=== PATIENT | female | born 1975 | race Caucasian/White ===

== ENCOUNTER 2019-05-26 20:32 | Inpatient (IN) | payer MEDICARE, MEDICAID ==
[~2019-05-26] VITALS: Ht 167.6 cm; Wt 84.5 kg
[~2019-05-26 20:32] MED LIST: ARIP400S IM; DIPH25 PO; ESCI10TA PO; LORA-1000 PO; LORA-999 PO; PALI156D IM; QUET100T PO; QUET25TA PO; TOPI100T37 PO
[2019-05-26] MEDS ORDERED: OLAN5TAB2 PO (21:16)
[2019-05-26] MEDS ORDERED: CLON2 PO (21:16)
[2019-05-26] MEDS ORDERED: ILOP4TAB2 PO (21:16)
[2019-05-26] MEDS ORDERED: DIVA125SP PO (21:16)
[2019-05-26] MEDS ORDERED: DEPOP150I IM (21:16)
[2019-05-26] MEDS ORDERED: PROZ10 PO (21:16)
[2019-05-26 22:06] LABS: BASOPHILS % (AUTO) 0.4 % (0.0-2.0); HEMATOCRIT 35.7 % (36-46); HEMOGLOBIN 12.2 g/dL (12.0-16.0); LYMPHOCYTES # (AUTO) 3.8 K/uL (1.0-4.8); LYMPHOCYTES % (AUTO) 41.2 % (22.0-44.0); MEAN CORPUSCULAR HEMOGLOBIN 31.2 pg (26.0-34.0); MEAN CORPUSCULAR HGB CONC 34.1 G/dL (31.0-37.0); MEAN CORPUSCULAR VOLUME 91 fL (80-100); MONOCYTES # (AUTO) 0.6 K/uL (0.1-1.0); NEUTROPHILS # (AUTO) 4.6 K/uL (1.8-7.7); NEUTROPHILS % (AUTO) 50.4 % (40.0-70.0); PLATELET COUNT (AUTO) 203 K/uL (150-450); RED BLOOD CELL COUNT(AUTO) 3.91 MIL/uL (4.00-5.20); RED CELL DISTRIBUTION WIDTH 13.4 % (11.5-14.5)
[2019-05-26 22:12] LABS: APPEARANCE,URINE CLEAR (CLEAR); BILIRUBIN,URINE NEGATIVE (NEGATIVE); GLUCOSE, URINE (UA) NEGATIVE (NEGATIVE); KETONES,URINE NEGATIVE (NEGATIVE); LEUKOCYTE ESTERASE ,URINE SMALL (NEGATIVE); NITRATE,URINE NEGATIVE (NEGATIVE); OCCULT BLOOD,URINE TRACE (NEGATIVE); PROTEIN,URINE NEGATIVE (NEGATIVE); UROBILINOGEN,URINE 0.2 mg/dL (<=1.0)
[2019-05-26 22:17] LABS: AMPHET/METH SCREEN,URINE NEGATIVE (NEGATIVE); BARBITURATE SCREEN, URINE NEGATIVE (NEGATIVE); BENZODIAZEPINES SCREEN,URINE NEGATIVE (NEGATIVE); CANNABINOID SCREEN,URINE NEGATIVE (NEGATIVE); COCAINE SCREEN,URINE NEGATIVE (NEGATIVE); METHADONE SCREEN, URINE NEGATIVE (NEGATIVE); OPIATE SCREEN,URINE NEGATIVE (NEGATIVE); PHENCYCLIDINE SCREEN,URINE NEGATIVE (NEGATIVE)
[2019-05-26 22:19] LABS: ANION GAP 10 mmol/L (8-16); CALCIUM, TOTAL 8.8 mg/dL (8.8-10.5); CARBON DIOXIDE 22 mmol/L (22-29); CHLORIDE 103 mmol/L (98-107); CREATININE 0.81 mg/dL (0.60-1.30); GLOMERULAR FILTR. RATE CALC > 60 mL/min (>60); GLUCOSE,RANDOM 103 mg/dL (70-110); POTASSIUM 3.4 mmol/L (3.5-5.1); SODIUM SERUM 135 mmol/L (136-145); UREA NITROGEN, BLOOD 14 mg/dL (7-18)
[2019-05-26 22:32] LABS: ALANINE AMINOTRANSFERASE 22 U/L (12-78); ALBUMIN 3.2 g/dL (3.4-5.0); ALKALINE PHOSPHATASE 61 U/L (46-116); ASPARTATE AMINOTRANSFERASE 12 U/L (15-37); BILIRUBIN,TOTAL 0.2 mg/dL (0.1-1.0); HCG,QUANTITATIVE < 1 mIU/mL (0-6); TOTAL PROTEIN, SERUM 6.8 g/dL (6.4-8.2)
[2019-05-26 22:54] LABS: BACTERIA,URINE None Seen /HPF (None Seen); RBC,URINE 0-2 /HPF (0-2); SQUAMOUS EPITHELIAL CELL,UR Few /LPF (None Seen)
[2019-05-27] MEDS ORDERED: LORazepam 2 MG TABLET PO PRN (00:15)
[2019-05-27] MEDS ORDERED: HALOPERIDOL 5 MG TABLET PO PRN (00:15)
[2019-05-27] MEDS ORDERED: ZOLPIDEM TARTRATE 10 MG TABLET PO PRN (00:15)
[2019-05-27 01:02] LABS: LIPASE 228 U/L (73-393)
[2019-05-27 04:31] VITALS: BP 123/83
[2019-05-27 05:05] VITALS: BP 123/83
[2019-05-27] MEDS ORDERED: POTASSIUM CHLORIDE 20 MEQ ER TABLET PO ONE (09:00)
[2019-05-27] MEDS: CEPHALEXIN MONOHYDRATE 500 MG CAPSULE PO SCH ×3 (09:10→16:29)
[2019-05-27 09:56] VITALS: BP 106/60
[2019-05-27 09:59] VITALS: BP 106/60
[2019-05-27] MEDS ORDERED: ClonazePAM 1 MG TABLET PO SCH (13:00)
[2019-05-27] MEDS ORDERED: ONDANSETRON HCL 4 MG TABLET PO PRN (15:45)
[2019-05-27] MEDS ORDERED: LOPERAMIDE HCL 2 MG CAPSULE PO PRN (15:45)
[2019-05-27] MEDS ORDERED: ALBUTEROL SULFATE HFA 90 MCG/PUFF 8 GM INHALER IH PRN (15:45)
[2019-05-27] MEDS ORDERED: MAG HYDROX/AL HYDROX/SIMETH ES 30 ML SUSPENSION UDCUP PO PRN (15:45)
[2019-05-27] MEDS ORDERED: DOCUSATE SODIUM 100 MG CAPSULE PO PRN (15:45)
[2019-05-27] MEDS ORDERED: NICOTINE 14 MG/24 HOUR PATCH TD PRN (15:45)
[2019-05-27] MEDS ORDERED: CloNIDine HCL 0.1 MG TABLET PO PRN (15:45)
[2019-05-27] MEDS ORDERED: IBUPROFEN 400 MG TABLET PO PRN (15:45)
[2019-05-27] MEDS ORDERED: MAGNESIUM HYDROXIDE SUSPENSION 30 ML UDCUP PO PRN (15:45)
[2019-05-27] MEDS ORDERED: GuaiFENesin/D-METHORPHAN [SUGAR-FREE] 200-20MG/10 ML SYRUP UDCUP PO PRN (15:45)
[2019-05-27] MEDS ORDERED: ACETAMINOPHEN 325 MG TABLET PO PRN (15:45)
[2019-05-27] MEDS ORDERED: PETROLATUM,WHITE 28 GM JELLY TP PRN (15:45)
[2019-05-27 16:19] VITALS: BP 109/68
[2019-05-27] MEDS: ClonazePAM 1 MG TABLET PO SCH (16:27)
[2019-05-27] MEDS: DIVALPROEX SODIUM 500 MG ER TABLET PO SCH (16:28)
[2019-05-27] MEDS: FLUoxetine HCL 10 MG CAPSULE PO SCH (16:28)
[2019-05-27] MEDS: OLANZapine 7.5 MG TABLET PO SCH (20:39)
[2019-05-28 01:11] VITALS: BP 117/73
[2019-05-28] MEDS ORDERED: INFLUENZA VIRUS VACCINE QVS 2019-20 (3YR+)/PF 60 MCG/0.5 ML SYRINGE IM ONE (01:15)
[2019-05-28] MEDS ORDERED: PNEUMOCOCCAL VACCINE POLYVALENT 0.5 ML VIAL [PPSV23] IM ONE (01:15)
[2019-05-28 08:11] VITALS: BP 132/77
[2019-05-28] MEDS: FLUoxetine HCL 10 MG CAPSULE PO SCH (08:14)
[2019-05-28] MEDS: TOPIRAMATE 100 MG TABLET PO SCH (08:14)
[2019-05-28] MEDS: DIVALPROEX SODIUM 500 MG ER TABLET PO SCH ×2 (08:14→16:16)
[2019-05-28] MEDS: ClonazePAM 1 MG TABLET PO SCH ×2 (08:14→16:17)
[2019-05-28] MEDS: CEPHALEXIN MONOHYDRATE 500 MG CAPSULE PO SCH ×3 (08:14→16:17)
[2019-05-28 16:12] VITALS: BP 109/80
[2019-05-28] MEDS: OLANZapine 7.5 MG TABLET PO SCH (21:00)
[2019-05-29 08:26] VITALS: BP 119/95
[2019-05-29] MEDS: CEPHALEXIN MONOHYDRATE 500 MG CAPSULE PO SCH ×3 (08:58→18:07)
[2019-05-29] MEDS: DIVALPROEX SODIUM 500 MG ER TABLET PO SCH ×2 (08:58→17:17)
[2019-05-29] MEDS: FLUoxetine HCL 10 MG CAPSULE PO SCH (08:58)
[2019-05-29] MEDS: TOPIRAMATE 100 MG TABLET PO SCH (08:59)
[2019-05-29] MEDS: ClonazePAM 1 MG TABLET PO SCH ×2 (08:59→17:17)
[2019-05-29 16:07] VITALS: BP 110/73
[2019-05-29] MEDS: OLANZapine 7.5 MG TABLET PO SCH (21:13)
[2019-05-30 02:12] VITALS: BP 115/81
[2019-05-30 08:25] VITALS: BP 107/71
[2019-05-30] MEDS: DIVALPROEX SODIUM 500 MG ER TABLET PO SCH ×2 (08:27→16:53)
[2019-05-30] MEDS: ClonazePAM 1 MG TABLET PO SCH ×2 (08:27→16:53)
[2019-05-30] MEDS: FLUoxetine HCL 10 MG CAPSULE PO SCH (08:28)
[2019-05-30] MEDS: TOPIRAMATE 100 MG TABLET PO SCH (08:28)
[2019-05-30] MEDS: CEPHALEXIN MONOHYDRATE 500 MG CAPSULE PO SCH ×3 (08:28→16:53)
[2019-05-30 17:33] VITALS: BP 108/61
[2019-05-30] MEDS: OLANZapine 7.5 MG TABLET PO SCH (20:34)
[2019-05-31 05:02] VITALS: BP 105/72
[2019-05-31 08:14] LABS: CHOL/HDL RATIO 5.8 (3.9-5.7); POTASSIUM 3.4 mmol/L (3.5-5.1)
[2019-05-31 08:22] VITALS: BP 120/96
[2019-05-31] MEDS: TOPIRAMATE 100 MG TABLET PO SCH (08:28)
[2019-05-31] MEDS: ClonazePAM 1 MG TABLET PO SCH ×2 (08:28→16:20)
[2019-05-31] MEDS: CEPHALEXIN MONOHYDRATE 500 MG CAPSULE PO SCH ×3 (08:28→16:20)
[2019-05-31] MEDS: FLUoxetine HCL 10 MG CAPSULE PO SCH (08:28)
[2019-05-31] MEDS: DIVALPROEX SODIUM 500 MG ER TABLET PO SCH ×2 (08:28→16:20)
[2019-05-31 13:09] VITALS: BP 119/78
[2019-05-31] MEDS ORDERED: DIVA-78 PO (15:12)
[2019-05-31] MEDS ORDERED: POTASSIUM CHLORIDE 20 MEQ ER TABLET PO ONE (15:15)
[2019-05-31 16:56] VITALS: BP 110/70
[2019-05-31] MEDS: OLANZapine 7.5 MG TABLET PO SCH ×3 (20:37→21:06)
[2019-06-01 00:29] VITALS: BP 108/72
[2019-06-01 08:27] VITALS: BP 105/74
[2019-06-01] MEDS: FLUoxetine HCL 10 MG CAPSULE PO SCH (08:30)
[2019-06-01] MEDS: DIVALPROEX SODIUM 500 MG ER TABLET PO SCH ×2 (08:30→17:21)
[2019-06-01] MEDS: TOPIRAMATE 100 MG TABLET PO SCH (08:30)
[2019-06-01] MEDS: ClonazePAM 1 MG TABLET PO SCH ×2 (08:31→17:21)
[2019-06-01 17:35] VITALS: BP 90/60
[2019-06-02 00:20] VITALS: BP 98/69
[2019-06-02] MEDS: FLUoxetine HCL 10 MG CAPSULE PO SCH (08:23)
[2019-06-02] MEDS: TOPIRAMATE 100 MG TABLET PO SCH (08:24)
[2019-06-02] MEDS: DIVALPROEX SODIUM 500 MG ER TABLET PO SCH ×2 (08:24→16:30)
[2019-06-02] MEDS: ClonazePAM 1 MG TABLET PO SCH ×2 (08:24→16:30)
[2019-06-02 08:39] VITALS: BP 115/73
[2019-06-02 16:29] VITALS: BP 106/72
[2019-06-02] MEDS: OLANZapine 7.5 MG TABLET PO SCH (20:31)
[2019-06-03 01:15] VITALS: BP 113/68
[2019-06-03 08:16] VITALS: BP 118/69
[2019-06-03] MEDS: DIVALPROEX SODIUM 500 MG ER TABLET PO SCH ×2 (08:30→16:43)
[2019-06-03] MEDS: ClonazePAM 1 MG TABLET PO SCH ×2 (08:30→16:43)
[2019-06-03] MEDS: TOPIRAMATE 100 MG TABLET PO SCH (08:30)
[2019-06-03] MEDS: FLUoxetine HCL 10 MG CAPSULE PO SCH (08:30)
[2019-06-03] MEDS: FLUoxetine HCL 20 MG CAPSULE PO SCH (16:43)
[2019-06-03 17:21] VITALS: BP 105/71
[2019-06-03] MEDS: OLANZapine 7.5 MG TABLET PO SCH (20:20)
[2019-06-04 04:01] VITALS: BP 103/60
[2019-06-04 08:36] VITALS: BP 100/70
[2019-06-04] MEDS: DIVALPROEX SODIUM 500 MG ER TABLET PO SCH ×2 (08:58→16:31)
[2019-06-04] MEDS: OMEGA-3/DHA/EPA/FISH OIL 500 MG CAPSULE PO SCH (08:58)
[2019-06-04] MEDS: ClonazePAM 1 MG TABLET PO SCH ×2 (08:58→16:31)
[2019-06-04] MEDS: FLUoxetine HCL 20 MG CAPSULE PO SCH ×2 (08:58→16:31)
[2019-06-04] MEDS: TOPIRAMATE 100 MG TABLET PO SCH (08:58)
[2019-06-04 16:22] VITALS: BP 106/72
[2019-06-04] MEDS: OLANZapine 7.5 MG TABLET PO SCH (20:36)
[2019-06-05 00:17] VITALS: BP 108/71
[2019-06-05 08:32] VITALS: BP 122/74
[2019-06-05] MEDS: FLUoxetine HCL 20 MG CAPSULE PO SCH ×2 (08:48→16:36)
[2019-06-05] MEDS: OMEGA-3/DHA/EPA/FISH OIL 500 MG CAPSULE PO SCH (08:48)
[2019-06-05] MEDS: TOPIRAMATE 100 MG TABLET PO SCH (08:48)
[2019-06-05] MEDS: DIVALPROEX SODIUM 500 MG ER TABLET PO SCH ×2 (08:48→16:36)
[2019-06-05] MEDS: ClonazePAM 1 MG TABLET PO SCH ×2 (08:49→16:36)
[2019-06-05 16:27] VITALS: BP 101/67
[2019-06-05] MEDS: OLANZapine 7.5 MG TABLET PO SCH (20:34)
[2019-06-06 01:14] VITALS: BP 110/63
[2019-06-06 08:27] VITALS: BP 106/76
[2019-06-06] MEDS: DIVALPROEX SODIUM 500 MG ER TABLET PO SCH ×2 (09:16→16:38)
[2019-06-06] MEDS: ClonazePAM 1 MG TABLET PO SCH ×2 (09:16→16:38)
[2019-06-06] MEDS: OMEGA-3/DHA/EPA/FISH OIL 500 MG CAPSULE PO SCH (09:16)
[2019-06-06] MEDS: TOPIRAMATE 100 MG TABLET PO SCH (09:16)
[2019-06-06] MEDS: FLUoxetine HCL 20 MG CAPSULE PO SCH ×2 (09:16→16:38)
[2019-06-06 16:11] VITALS: BP 109/72
[2019-06-06] MEDS: OLANZapine 7.5 MG TABLET PO SCH (20:31)
[2019-06-07 07:00] VITALS: BP 90/60
[2019-06-07 08:15] VITALS: BP 111/88
[2019-06-07] MEDS: OMEGA-3/DHA/EPA/FISH OIL 500 MG CAPSULE PO SCH (08:43)
[2019-06-07] MEDS: ClonazePAM 1 MG TABLET PO SCH ×2 (08:43→16:48)
[2019-06-07] MEDS: TOPIRAMATE 100 MG TABLET PO SCH (08:43)
[2019-06-07] MEDS: DIVALPROEX SODIUM 500 MG ER TABLET PO SCH ×2 (08:43→16:48)
[2019-06-07] MEDS: FLUoxetine HCL 20 MG CAPSULE PO SCH ×2 (08:43→16:48)
[2019-06-07 16:40] VITALS: BP 107/62
[2019-06-07] MEDS: DIVALPROEX SODIUM 250 MG ER TABLET PO SCH (21:04)
[2019-06-07] MEDS: OLANZapine 7.5 MG TABLET PO SCH (21:04)
[2019-06-08 00:09] VITALS: BP 100/70
[2019-06-08] MEDS: ClonazePAM 1 MG TABLET PO SCH ×2 (08:51→16:12)
[2019-06-08] MEDS: FLUoxetine HCL 20 MG CAPSULE PO SCH ×2 (08:51→16:12)
[2019-06-08] MEDS: TOPIRAMATE 100 MG TABLET PO SCH (08:51)
[2019-06-08] MEDS: OMEGA-3/DHA/EPA/FISH OIL 500 MG CAPSULE PO SCH (08:51)
[2019-06-08 09:02] VITALS: BP 101/69
[2019-06-08 16:29] VITALS: BP 114/67
[2019-06-08] MEDS: OLANZapine 7.5 MG TABLET PO SCH (21:09)
[2019-06-08] MEDS: DIVALPROEX SODIUM 250 MG ER TABLET PO SCH (21:09)
[2019-06-09 01:49] VITALS: BP 99/55
[2019-06-09 08:36] VITALS: BP 100/62
[2019-06-09] MEDS: ClonazePAM 1 MG TABLET PO SCH ×3 (08:48→16:22)
[2019-06-09] MEDS: FLUoxetine HCL 20 MG CAPSULE PO SCH ×2 (08:48→16:22)
[2019-06-09] MEDS: TOPIRAMATE 100 MG TABLET PO SCH (08:48)
[2019-06-09] MEDS: OMEGA-3/DHA/EPA/FISH OIL 500 MG CAPSULE PO SCH (08:48)
[2019-06-09] MEDS ORDERED: OMEG-116 PO (15:57)
[2019-06-09] MEDS ORDERED: DIVA250T45 PO (15:57)
[2019-06-09] MEDS ORDERED: OLAN7.5T9 PO (15:57)
[2019-06-09] MEDS ORDERED: CLON1TAB12 PO (15:57)
[2019-06-09] MEDS ORDERED: TOPI100T37 PO (15:57)
[2019-06-09] MEDS ORDERED: FLUO-191 PO (15:57)
[2019-06-09 16:28] VITALS: BP 111/69
[2019-06-09] MEDS: DIVALPROEX SODIUM 250 MG ER TABLET PO SCH (20:25)
[2019-06-09] MEDS: OLANZapine 7.5 MG TABLET PO SCH (20:26)
[2019-06-10 06:37] VITALS: BP 100/67
[2019-06-10 08:16] VITALS: BP 109/57
[2019-06-10] MEDS: ClonazePAM 1 MG TABLET PO SCH (08:34)
[2019-06-10] MEDS: TOPIRAMATE 100 MG TABLET PO SCH (08:34)
[2019-06-10] MEDS: OMEGA-3/DHA/EPA/FISH OIL 500 MG CAPSULE PO SCH (08:34)
[2019-06-10] MEDS: FLUoxetine HCL 20 MG CAPSULE PO SCH (08:34)
== END 2019-06-10 12:40 | disposition home or self-care (01) | DRG 885 ==
LOC: EMS 20:37 → B2X 05-27 00:33
PROVIDERS: ADMIT Psychiatry & Neurology Psychiatry; ATTEND Psychiatry & Neurology Psychiatry
DX: F20.0 Paranoid schizophrenia (principal); N18.9 Chronic kidney disease, unspecified; N39.0 Urinary tract infection, site not specified; R45.851 Suicidal ideations; G40.909 Epilepsy, unspecified, not intractable, without status epilepticus; D64.9 Anemia, unspecified; E03.9 Hypothyroidism, unspecified; E78.5 Hyperlipidemia, unspecified; E87.6 Hypokalemia; I12.9 Hypertensive chronic kidney disease with stage 1 through stage 4 chronic kidney disease, or unspecified chronic kidney disease; J44.9 Chronic obstructive pulmonary disease, unspecified; K21.9 Gastro-esophageal reflux disease without esophagitis; Z79.899 Other long term (current) drug therapy; Z87.442 Personal history of urinary calculi
CPT/HCPCS: 84132; 87086; G0480

== ENCOUNTER 2019-08-02 20:31 | Emergency (ER) | payer MEDICARE, MEDICAID ==
[~2019-08-02] VITALS: Ht 162.6 cm; Wt 84.1 kg
[~2019-08-02 20:31] MED LIST changes: -ARIP400S IM; +CLON1TAB12 PO; -DIPH25 PO; +DIVA-85 PO; -ESCI10TA PO; +FLUO-191 PO; -LORA-1000 PO; -LORA-999 PO; +OLAN7.5T9 PO; +OMEG-116 PO; -PALI156D IM; -QUET100T PO; -QUET25TA PO
[2019-08-03 00:54] VITALS: BP 117/67
== END 2019-08-03 00:55 | disposition home or self-care (01) ==
LOC: EMS 20:33
DX: R06.02 Shortness of breath (principal); F20.9 Schizophrenia, unspecified; Z79.899 Other long term (current) drug therapy

== ENCOUNTER 2019-08-26 08:47 | Emergency (ER) | payer MEDICARE, MEDICAID ==
[~2019-08-26] VITALS: Ht 160 cm; Wt 68.2 kg
[~2019-08-26 08:47] MED LIST changes: -DIVA-85 PO; +DIVA250T45 PO
[2019-08-26 17:58] VITALS: BP 126/73
== END 2019-08-26 20:21 | disposition home or self-care (01) ==
LOC: EMS 08:51
DX: Z03.818 Encounter for observation for suspected exposure to other biological agents ruled out (principal); F20.0 Paranoid schizophrenia; F69 Unspecified disorder of adult personality and behavior